=== PATIENT | male | born 1995 | race Caucasian/White ===

== ENCOUNTER 2019-08-31 12:47 | Emergency (ER) | payer OTHER ==
[~2019-08-31] VITALS: Ht 185.4 cm; Wt 109.0 kg
--- NOTE | 2019-08-31 12:53 | PHYS DOC ---
Past History Past Medical History: No Pertinent History Smoking: Less than 1pk/day Alcohol Use: Rarely Adult General HPI HPI Healthy 24-year-old male who presents for evaluation of a one-week history of URI symptoms. Reports sore throat, rhinorrhea, mild nonproductive cough. No chest pain or dyspnea. He was seen on August 22 at [facility] for similar symptoms. Rapid strep was negative. Review of records show that throat culture had growth of only normal respiratory [place]. No fevers or chills. No re cent out of country travel. He was advised to self quarantine in like of the COVID19 pandemic. Review of Systems Review of Systems General: No fevers, chills. Eyes: No blurred vision, diplopia. ENT: No nasal congestion. Reports rhinorrhea, sore throat. CV: No chest pain, edema. Resp: No shortness of breath. Reports cough. GI: No abdominal pain, nausea, vomiting, diarrhea. : No dysuria, hematuria. Neuro: No headache, dizziness, weakness. MSK: No myalgia, arthralgia, back pain. Skin: No acute rash, lesion. All other systems were reviewed and found to be within normal limits, except as documented in this note. Physical Exam Physical Exam Gen: NAD. Head: NC/AT Eyes: No scleral icterus. No conjunctival injection. ENT: MMM. Posterior OP clear. Uvula midline. No tonsillar hypertrophy or asymmetry. No exudate. No "hot potato" voice. Neck: Supple. NT. No meningismus. CV: RRR. Peripheral pulses intact. Resp: CTAB. No W/C/R. No increased work of breathing. Abd: Soft. NT. ND. MSK: No peripheral cyanosis. No edema. Neuro: Awake and alert. Skin: Warm. Dry. No acute rash. Psych: Appropriate mood & affect. EKG EKG [] Radiology/Procedures Radiology/Procedures CXR: The cardiomediastinal silhouette is normal. Pulmonary vasculature is normal. The lungs are clear. No pleural effusion or pneumothorax is seen. There is no acute bone abnormality. IMPRESSION: No acute cardiopulmonary process. Course & Med Decision Making Course & Med Decision Making Pertinent Labs and Imaging studies reviewed. (See chart for details) In summary, a 24-year-old healthy male who presents for evaluation of a one-week history of URI symptoms, without fever, chills, chest pain or dyspnea. No significant high risk features in regards to possibility of novel coronavirus infection, though was previously advised to self quarantine at previous visit at [facility]. The patient is hemodynamically stable. No fever. ENT and cardiorespiratory examination are unremarkable. No clinical signs or symptoms concerning for deep space laryngeal/pharyngeal infection. The patient's rapid strep and throat culture were negative for previous visit at [facility]. We'll escalate his workups included two-view chest x-ray. He'll be given oral dexamethasone 10 mg for sore throat, to perhaps decrease the duration and severity of his symptoms. 1355: CXR clear. COVID19 testing can not be reasonably performed at this time given constraints of supplies, and patient not meeting all criteria per [facility] (no Hx travel within 14 days, no identifiable source of exposure, no fever (other resp tests can not be reasonably performed at this time either, i.e. RVP). Pa tient remains well appearing and nontoxic. Will DC home with outpatient FU, continuation of home quarantine precautions. Return precautions given. Dragon Disclaimer Dragon Disclaimer This electronic medical record was generated, in whole or in part, using a voice recognition dictation system. Departure Departure: Impression: Primary Impression: Viral syndrome Disposition: HOME, SELF-CARE Condition: STABLE Referrals: JESE ZABALA DO (PCP) Patient Instructions: Viral Syndrome REGGIE LUCIO DO Aug 31, 2019 12:53
[2019-08-31 12:59] VITALS: BP 142/96
[2019-08-31] MEDS ORDERED: DEXAMETHASONE 4 MG TABLET PO ONE (13:15)
--- NOTE | 2019-08-31 13:53 | RAD ---
CHEST PA LATERAL History: Cough Comparison: None. Findings: The cardiomediastinal silhouette is normal. Pulmonary vasculature is normal. The lungs are clear. No pleural effusion or pneumothorax is seen. There is no acute bone abnormality. IMPRESSION: No acute cardiopulmonary process. Electronically signed by: Casa Álvarez MD (08/31/2019 1:50 PM) [id number]
== END 2019-08-31 14:04 | disposition home or self-care (01) ==
LOC: ER 12:47
DX: B34.9 Viral infection, unspecified (principal); F17.200 Nicotine dependence, unspecified, uncomplicated
CPT/HCPCS: 71046; 99283; J8540